=== PATIENT | female | born 1985 | race Caucasian/White ===

== ENCOUNTER 2017-12-03 14:54 | Emergency (ER) | payer MEDICAID ==
[~2017-12-03] VITALS: Ht 170.2 cm; Wt 63.5 kg
[2017-12-03] MEDS ORDERED: PROTONIX 20 MG20 M1 PO (15:04)
[2017-12-03] MEDS ORDERED: PREDNISONE 5 MG5 M1 PO (15:04)
[2017-12-03] MEDS ORDERED: CELEXA20 MG PO (15:05)
[2017-12-03] MEDS ORDERED: BCP (15:05)
[2017-12-03] MEDS ORDERED: XANAX1 MG PO (15:05)
[2017-12-03] MEDS ORDERED: BENZONATATE200 MG PO (16:06)
[2017-12-03] MEDS ORDERED: FLEXERIL PO (16:06)
[2017-12-03] MEDS ORDERED: NORCO 5-325 TA1 EAC1 PO (16:07)
[2017-12-03 16:20] VITALS: BP 123/83
== END 2017-12-03 16:28 | disposition home or self-care (01) ==
LOC: M.ERS 14:54
DX: S22.43XA Multiple fractures of ribs, bilateral, initial encounter for closed fracture (principal); F31.9 Bipolar disorder, unspecified; F17.210 Nicotine dependence, cigarettes, uncomplicated; Z88.8 Allergy status to other drugs, medicaments and biological substances; X58.XXXA Exposure to other specified factors, initial encounter; Y93.89 Activity, other specified; Y92.89 Other specified places as the place of occurrence of the external cause; Y99.8 Other external cause status

== ENCOUNTER 2018-01-18 06:44 | Emergency (ER) | payer MEDICAID ==
[~2018-01-18] VITALS: Ht 170.2 cm; Wt 63.5 kg
[~2018-01-18 06:44] MED LIST: BCP; BENZONATATE200 MG PO; CELEXA20 MG PO; FLEXERIL PO; NORCO 5-325 TA1 EAC1 PO; PREDNISONE 5 MG5 M1 PO; PROTONIX 20 MG20 M1 PO; XANAX1 MG PO
[2018-01-18] MEDS ORDERED: LATUDA (06:56)
[2018-01-18] MEDS ORDERED: CALCIUM (06:56)
[2018-01-18] MEDS ORDERED: VIORELE 28 DAY1 EACH (06:56)
[2018-01-18 07:18] LABS: URINE BILIRUBIN NEGATIVE (Negative); URINE BLOOD NEGATIVE (Negative); URINE CLARITY CLEAR; URINE COLOR YELLOW; URINE GLUCOSE-RANDOM NEGATIVE (Negative); URINE KETONES NEGATIVE (Negative); URINE LEUKOCYTES-REFLEX NEGATIVE (Negative); URINE NITRITE-REFLEX NEGATIVE (Negative); URINE PROTEIN TRACE (Negative); URINE UROBILINOGEN 0.2 E.U./dl (0.2-1.0)
[2018-01-18 07:42] LABS: HEMOGLOBIN 14.1 gm/dL (12.0-15.0); MCH 29.4 pg (26.0-34.0); MCHC 33.5 g/dL (28.0-37.0); MCV 87.8 fL (80.0-100.0); MPV 8.8 fl. (7.2-11.1); NUCLEATED RBCS 0 /100WBC; PLATELET COUNT* 460 thou/uL (150-400); RBC 4.79 mil/uL (4.20-5.00); RDW-CV 14.1 % (10.5-14.5); WBC 11.4 thou/uL (4.0-11.0)
[2018-01-18 07:55] LABS: CALCIUM 10.2 mg/dL (8.5-10.1); CREATININE 1.4 mg/dL (0.6-1.3); POTASSIUM 3.2 mmol/L (3.5-5.1)
[2018-01-18 07:59] LABS: ALBUMIN 3.6 g/dL (3.4-5.0); TOTAL BILIRUBIN 0.2 mg/dL (<0.1-1.0); TOTAL PROTEIN 7.3 g/dL (6.4-8.2)
[2018-01-18 08:13] LABS: ABSOLUTE BASOPHILS 0.1 thou/uL (0.0-0.2); ABSOLUTE EOSINOPHILS 0.9 thou/uL (0.0-0.7); ABSOLUTE LYMPHOCYTES 2.3 thou/uL (0.8-5.3); ABSOLUTE MONOCYTES 0.3 thou/uL (0.0-1.2); ABSOLUTE NEUTROPHILS 7.8 thou/uL (1.6-8.1); ATYPICAL LYMPHS 1 %; PLATELET ESTIMATE INCREASED
[2018-01-18 08:15] LABS: LARGE PLATELETS RARE
[2018-01-18] MEDS ORDERED: ZOFRAN ODT4 MG PO (08:17)
[2018-01-18] MEDS ORDERED: NORCO 5-325 TA1 EACH PO (08:17)
[2018-01-18 08:35] VITALS: BP 129/90
--- NOTE | 2018-01-19 18:40 | EKG ---
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1985 Requested By: Ok Michelle Order Number: [id number] MD: Eliseo Harper Measurements Intervals [place] Rate: 58 P: 34 IA: 145 QRS: 52 QRSD: 119 T: 23 QT: 458 QTc: 450 Interpretive Statements Sinus rhythm Nonspecific intraventricular conduction delay Compared to ECG 01/19/2017 10:47:33 Intraventricular conduction delay now present Right ventricular hypertrophy no longer present ST (T wave) deviation no longer present Electronically Signed On 01-19-2018 18:39:59 CDT by Eliseo Harper [email or web address] <ELECTRONICALLY SIGNED> By: Eliseo Harper MD, [facility] 01/19/18 1839 [id number] [id number] Eliseo Harper MD, [facility] /EPI
== END 2018-01-18 08:36 | disposition home or self-care (01) ==
LOC: M.ERS 06:44
PROVIDERS: Emergency Medicine Emergency Medical Services
DX: R10.84 Generalized abdominal pain (principal); R11.2 Nausea with vomiting, unspecified; R19.7 Diarrhea, unspecified; F31.9 Bipolar disorder, unspecified; F17.210 Nicotine dependence, cigarettes, uncomplicated; Z88.8 Allergy status to other drugs, medicaments and biological substances

== ENCOUNTER → 2018-08-27 | Outpatient (CLI) | payer OTHER ==
[~2018-08-27] MED LIST changes: +CALCIUM; +LATUDA; +NORCO 5-325 TA1 EACH PO; +VIORELE 28 DAY1 EACH; +ZOFRAN ODT4 MG PO
== END ==
LOC: M.RAD 12:27
DX: M25.551 Pain in right hip (principal)

== ENCOUNTER 2018-11-04 23:15 | Inpatient (IN) | payer OTHER ==
[~2018-11-04] VITALS: Ht 170.2 cm; Wt 64.9 kg
[2018-11-04 23:38] VITALS: BP 116/69
[2018-11-04] MEDS ORDERED: LATUDA60 MG PO (23:44)
[2018-11-04] MEDS ORDERED: ESKALITH300 MG PO (23:44)
[2018-11-04] MEDS ORDERED: TRAZODONE 150150 M1 PO (23:45)
[2018-11-04] MEDS ORDERED: VITAMIN D5000 UNI1 PO (23:45)
[2018-11-04] MEDS ORDERED: XANAX1 MG PO (23:45)
[2018-11-05 00:32] LABS: ABSOLUTE BASOPHILS 0.1 thou/uL (0.0-0.2); ABSOLUTE EOSINOPHILS 0.8 thou/uL (0.0-0.7); ABSOLUTE LYMPHOCYTES 1.5 thou/uL (0.8-5.3); ABSOLUTE MONOCYTES 0.7 thou/uL (0.0-1.2); ABSOLUTE NEUTROPHILS 10.6 thou/uL (1.6-8.1); BASOPHILS 0.6 %; EOSINOPHILS 5.5 %; HEMATOCRIT 36.2 % (37.0-47.0); MCH 30.1 pg (26.0-34.0); MCHC 33.2 g/dL (28.0-37.0); MCV 90.6 fL (80.0-100.0); MONOCYTES 5.5 %; MPV 8.8 fl. (7.2-11.1); NUCLEATED RBCS 0 /100WBC; PLATELET COUNT* 346 thou/uL (150-400); POLYS 77.4 %; RBC 3.99 mil/uL (4.20-5.00); WBC 13.6 thou/uL (4.0-11.0)
[2018-11-05 00:41] LABS: ALBUMIN 3.8 g/dL (3.4-5.0); CALCIUM 9.5 mg/dL (8.5-10.1); CREATININE 1.4 mg/dL (0.6-1.3); POTASSIUM 3.7 mmol/L (3.5-5.1); TOTAL BILIRUBIN 0.1 mg/dL (<0.1-1.0); TOTAL PROTEIN 7.2 g/dL (6.4-8.2)
[2018-11-05 03:03] VITALS: BP 113/78
--- NOTE | 2018-11-05 03:40 | NUR ---
ASSUMED CARE FROM PT FROM ED , UPON ARRIVAL TO [facility] PT LAERT ORIENTED X4 DATA BASE AND ASSESSMENT COMPLETED , DISCUSSED PLAN OF CARE , VERBALIZED UNDERSTANDING AND AGREEABLE. PAIN MEDICATION IV GIVEN PT INSTRUCTED CALL IF NEEDING ASSISSTANCE TO BATHROOM DUE TO UNSTEADY GAIT.
[2018-11-05 07:50] VITALS: BP 99/57
--- NOTE | 2018-11-05 16:00 | NUR ---
SW met with pt mother while pt was sleeping soundly. SW completed initial assessment, introduced self, and SW role. Pt lives at home with her mother and also sometimes lives with her father. 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 Pt mother explained pt is trying to rebuild her life after "this all started two years ago". Pt had Medicaid for a while but pt mother reported that it suddenly was inactivated and they are interested in talking with [employer] again to try to reapply. Pt mother said that they are waiting to hear whether or not pt may need a hip surgery. SW provided emotional support. SW to continue to follow to assist with safe dc planning.
--- NOTE | 2018-11-05 16:04 | NUR ---
ASSESSMENT COMPLETE. PT ALERT AND ORIENTED X4. PRN PAIN MEDICATION GIVEN ONCE THIS AM. MRI DONE THIS MORNING. ORTHO CONSULT TODAY. PT GIVEN PRN ANXIETY MEDS ONCE DURING THE DAY. PT CURRENTLY SLEEPING, DENIES ANY CONCERNS AT THIS TIME. SEE ASSESSMENT AND VITALS FOR OTHER DETAILS. CALL LIGHT WITHIN REACH, WILL CONTINUE PLAN OF CARE
[2018-11-05 18:04] VITALS: BP 109/69
[2018-11-05 21:00] VITALS: BP 113/79
[2018-11-06 00:24] VITALS: BP 113/79
--- NOTE | 2018-11-06 06:50 | NUR ---
PT A&O, STABLE VS. PT RECIEVED FENTANYL X1 FOR PAIN DURING SHIFT, RELIEF NOTED. MEDS GIVEN, REFUSED LOVENOX. LITHIUM AND LATUDA RESCHEDULED @HS PER PT'S HOME MED HX. IV PATENT. BED IN LOW POSITION, CALL LIGHT WITHIN REACH. WILL CONTINUE PLAN OF CARE.
[2018-11-06 07:21] VITALS: BP 99/64
[2018-11-06 15:13] VITALS: BP 99/64
[2018-11-06 15:35] VITALS: BP 99/64
== END 2018-11-06 15:30 | disposition home or self-care (01) | DRG 554 ==
LOC: M.ERS 23:15 → M.TBA-ER 11-05 01:42 → M.3W 11-05 01:42
PROVIDERS: Family Medicine; ADMIT Internal Medicine
DX: M87.851 Other osteonecrosis, right femur (principal); N20.2 Calculus of kidney with calculus of ureter; F31.9 Bipolar disorder, unspecified; L27.0 Generalized skin eruption due to drugs and medicaments taken internally; F17.210 Nicotine dependence, cigarettes, uncomplicated; Z88.8 Allergy status to other drugs, medicaments and biological substances; Z82.49 Family history of ischemic heart disease and other diseases of the circulatory system; Z83.6 Family history of other diseases of the respiratory system; Z71.6 Tobacco abuse counseling